=== PATIENT | female | born 1975 | race Caucasian/White ===

== ENCOUNTER 2017-12-14 08:13 | Emergency (ER) | payer OTHER, MEDICAID ==
[~2017-12-14] VITALS: Ht 157.5 cm; Wt 81.7 kg
[~2017-12-14 08:13] MED LIST: AUGMENTIN 500-1 EACH PO; DUONEB 2.5-0.5 M3 ML INH; HYDROCODONE-AP1 EAC6 PO; IBUPROFEN 800800 M1 PO; IBUPROFEN 800800 MG PO; LISINOPRIL-HCT1 EACH PO; NAPROSYN500 MG PO; NEBULIZER MISCELL; NOHOMEMEDICATIONS; NORCO 5-325 TA1 EACH PO; PREDNISONE 10 M10 MG PO; PREDNISONE50 MG PO; PROMETHAZINE-D120 ML PO; PROPRANOLOL 8080 MG; ULTRACET TABLE1 EACH PO; VENTOLIN HFA 1818 GM INH; ZOFRAN ODT4 MG PO
[2017-12-14] MEDS ORDERED: TYLENOL325 MG PO (08:26)
[2017-12-14] MEDS ORDERED: FLEXERIL PO (09:23)
[2017-12-14] MEDS ORDERED: NORCO 5-325 TA1 EACH PO (09:23)
[2017-12-14] MEDS ORDERED: IBUPROFEN 800800 M1 PO (09:23)
[2017-12-14 09:30] VITALS: BP 143/99
== END 2017-12-14 09:31 | disposition home or self-care (01) ==
LOC: M.ERS 08:13
DX: S46.911A Strain of unspecified muscle, fascia and tendon at shoulder and upper arm level, right arm, initial encounter (principal); M54.2 Cervicalgia; I10 Essential (primary) hypertension; Z90.710 Acquired absence of both cervix and uterus; V49.9XXA Car occupant (driver) (passenger) injured in unspecified traffic accident, initial encounter; Y93.89 Activity, other specified; Y92.89 Other specified places as the place of occurrence of the external cause; Y99.8 Other external cause status

== ENCOUNTER 2019-10-21 10:41 | Emergency (ER) | payer OTHER ==
[~2019-10-21] VITALS: Ht 157.5 cm; Wt 81.7 kg
[~2019-10-21 10:41] MED LIST changes: +FLEXERIL PO; +TYLENOL325 MG PO
[2019-10-21 11:20] LABS: INFLUENZA A ANTIGEN Negative (Negative); INFLUENZA B ANTIGEN Negative (Negative)
[2019-10-21] MEDS ORDERED: MEDROLDOSEPACK PO (13:51)
[2019-10-21] MEDS ORDERED: VENTOLIN HFA 1818 GM INH ×2 (13:51→13:52)
[2019-10-21 14:07] VITALS: BP 135/83
== END 2019-10-21 14:08 | disposition home or self-care (01) ==
LOC: M.ERS 10:41
PROVIDERS: Emergency Medicine
DX: J20.9 Acute bronchitis, unspecified (principal); I10 Essential (primary) hypertension; F17.210 Nicotine dependence, cigarettes, uncomplicated; Z90.710 Acquired absence of both cervix and uterus

== ENCOUNTER → 2019-12-06 | Outpatient (CLI) | payer OTHER ==
[~2019-12-06] MED LIST changes: +MEDROLDOSEPACK PO
== END ==
LOC: M.CT 10:41
DX: K82.8 Other specified diseases of gallbladder (principal); I70.90 Unspecified atherosclerosis; Z90.710 Acquired absence of both cervix and uterus